=== PATIENT | male | born 1995 | race Caucasian/White ===

== ENCOUNTER 2016-05-04 02:12 | Observation (INO) | payer BC ==
[2016-05-04 02:32] VITALS: BP 158/93
--- NOTE | 2016-05-04 03:04 | ER Document Report ---
ED Psych Disorder / Suicide - General Chief Complaint: Numbness Stated Complaint: NUMBNESS ON RIGHT SIDE Time seen by provider: 02:59 Mode of Arrival: Stretcher Information source: Law Enforcement TRAVEL OUTSIDE OF THE [place] IN LAST 30 DAYS: No - HPI Patient complains to provider of: Suicidal ideation Onset: Just prior to arrival Onset was: Sudden Suicide Risk Factors: Male Associated symptoms: Flat affect, Other - Somnolent Notes: Patient is a 20-year-old male who was brought to the emergency room by law enforcement for suicidal ideation, IVC paper work that was completed by patient' s mother, states " Respondent and is currently on a balcony at the hotel. Respondent is suicidal with verbal thoughts of killing himself. Respondent is currently prescribed oxycodone, Xanax, Flomax and amphetamines. Respondent is argumentative with family. Respondent is currently depressed and family feels he will hurt himself.", Patient is somnolent upon arrival and does not provide any additional information - Related Data Allergies/Adverse Reactions: hydrocodone Allergy (Verified 05/04/16 02:33) Past Medical History - General Information source: Law Enforcement - Social History Smoking Status: Never Smoker Chew tobacco use (# tins/day): No Frequency of alcohol use: Occasional Drug Abuse: None Family History: Reviewed & Not Pertinent Patient has suicidal ideation: No Patient has homicidal ideation: No Renal/ Medical History: Denies: Hx Peritoneal Dialysis Review of Systems - Review of Systems Constitutional: No symptoms reported EENT: No symptoms reported Cardiovascular: No symptoms reported Respiratory: No symptoms reported Gastrointestinal: No symptoms reported Genitourinary: No symptoms reported Male Genitourinary: No symptoms reported Musculoskeletal: No symptoms reported Skin: No symptoms reported Hematologic/Lymphatic: No symptoms reported Neurological/Psychological: See HPI -: Yes All other systems reviewed and negative Physical Exam - Vital signs Vitals: Temp Pulse Resp BP Pulse Ox 97.9 F 97 16 158/93 H 96 05/04/16 02:23 05/04/16 02:23 05/04/16 02:23 05/04/16 02:23 05/04/16 02:23 Interpretation: Tachycardic - General General appearance: Other - Somnolent In distress: None - HEENT Head: Normocephalic, Atraumatic Eyes: Normal Conjunctiva: Normal Extraocular movements intact: Yes Eyelashes: Normal Pupils: PERRL Mucous membranes: Dry - Respiratory Respiratory status: No respiratory distress Chest status: Nontender Breath sounds: Normal Chest palpation: Normal - Cardiovascular Rhythm: Regular, Tachycardia - Abdominal Inspection: Normal, Healed incision Bowel sounds: Normal Tenderness: Tender - Mild tenderness in epigastric and left upper quadrant - Back Back: Normal - Extremities General upper extremity: Normal inspection General lower extremity: Normal inspection - Neurological Jose C Coma Scale Eye Opening: To Voice [place] Coma Scale Verbal: Confused [place] Coma Scale Motor: Obeys Commands Jose C Coma Scale Total: 13 - Psychological Associated symptoms: Flat affect, Other - Somnolent - Skin Skin Temperature: Warm Skin Moisture: Dry Skin Color: Normal Course - Re-evaluation Re-evalutation: 05/04/16 03:02 Patient brought to the emergency room on IVC paper work does completed by his mother stating that he was on a balcony, verbalizing suicidal thoughts, that he is argumentative with family and currently depressed and is at risk of harming himself, patient is somnolent on arrival, slightly tachycardic but otherwise stable, concerning likely ingested some medications, we will continue to monitor patient in the emergency room, he will be held on IVC paper work, for further evaluation by the mental health team in the morning - Vital Signs Vital signs: Temp Pulse Resp BP Pulse Ox 97.9 F 97 16 158/93 H 96 05/04/16 02:23 05/04/16 02:23 05/04/16 02:23 05/04/16 02:23 05/04/16 02:23 - EKG Interpretation by Me EKG shows normal: Sinus rhythm Rate: Tachycardia Discharge - Discharge Clinical Impression: Suicidal ideation Condition: Stable Disposition: PSYCH HOSP/UNIT
--- NOTE | 2016-05-04 03:10 | ER Document Report ---
ED General - General TRAVEL OUTSIDE OF THE [place] IN LAST 30 DAYS: No <ABENA BARLOW - Last Filed: 05/04/16 07:04> <MARISSA TURCIOS - Last Filed: 05/04/16 12:36> - General Chief Complaint: Numbness Stated Complaint: NUMBNESS ON RIGHT SIDE Notes: Patient is a 20-year-old male who presents after he had a sudden onset headache during masturbating. This occurred around 1:30 AM. Patient says that he then developed numbness and weakness and rest of his body in had difficulty walking on his own. He said very slurred speech. This never happened before. His only history is depression and asthma. Patient's father is at bedside and says his speech was very slurred. Father said that he had to help him walk as he cannot walk on his own. Patient says his symptoms have almost completely resolved. Has no weakness on the right side. He says that she still has just a very slight numbness to the right side. His headache is improving. His vision is improved. His speech is back to normal. (ABENA BARLOW) - Related Data Allergies/Adverse Reactions: hydrocodone Allergy (Verified 05/04/16 02:33) Past Medical History - Social History Smoking Status: Never Smoker Chew tobacco use (# tins/day): No Frequency of alcohol use: Occasional Drug Abuse: None Family History: Reviewed & Not Pertinent Patient has suicidal ideation: No Patient has homicidal ideation: No Renal/ Medical History: Denies: Hx Peritoneal Dialysis <ABENA BARLOW - Last Filed: 05/04/16 07:04> Review of Systems <ABENA BARLOW - Last Filed: 05/04/16 07:04> <MARISSA TURCIOS - Last Filed: 05/04/16 12:36> - Review of Systems Notes: My Normal Review Basic REVIEW OF SYSTEMS: CONSTITUTIONAL : Denies fever, chills, or sweats. Denies recent illness. EENT: Denies eye, ear, throat, or mouth pain or symptoms. Denies nasal or sinus congestion. CARDIOVASCULAR: Denies chest pain. RESPIRATORY: Denies cough, cold, or chest congestion. Denies shortness of breath, difficulty breathing, or wheezing. GASTROINTESTINAL: Denies abdominal pain. Denies nausea, vomiting, or diarrhea. Denies constipation. Last BM: MUSCULOSKELETAL: Denies neck or back pain or joint pain or swelling. SKIN: Denies rash or skin lesions. NEUROLOGICAL: Denies altered mental status or loss of consciousness. Had a headache. Weakness and numbness to the right side which is improving. Had slurred speech which is improved. ALL OTHER SYSTEMS REVIEWED AND NEGATIVE. (ABENA BARLOW) Physical Exam <ABENA BARLOW - Last Filed: 05/04/16 07:04> <MARISSA TURCIOS - Last Filed: 05/04/16 12:36> - Vital signs Vitals: Temp Pulse Resp BP Pulse Ox 97.9 F 97 16 158/93 H 96 05/04/16 02:23 05/04/16 02:23 05/04/16 02:23 05/04/16 02:23 05/04/16 02:23 (ABENA BARLOW) (MARISSA TURCIOS) - Notes Notes: General Appearance: Well nourished, alert, cooperative, no acute distress, no obvious discomfort. Well-appearing. Vitals: reviewed, See vital signs table. Head: no swelling or tenderness to the head Eyes: PERRL, EOMI, Conjuctiva clear Mouth: No decreasd moisture Throat: No tonsillar inflammation, No airway obstruction, No lymphadenopathy Neck: Supple, no neck tenderness, No thyromegaly Lungs: No wheezing, No rales, No rhonci, No accessory muscle use, good air exchange bilaterally. Heart: Normal rate, Regular rythm, No murmur, no rub Abdomen: Normal BS, soft, No rigidity, No abdominal tenderness, No guarding, no rebound, no abdominal masses, no organomegaly Extremities: strength 5/5 in all extremities, good pulses in all extremities, no swelling or tenderness in the extremities, no edema. Skin: warm, dry, appropriate color, no rash Neuro: speech clear, oriented x 3, normal affect, responds appropriately to questions. Cranial nerves II through XII are intact. Patient can feel me touch his right upper and lower extremity but says it's slightly diminished in comparison to the sensation on his left side. Speech is clear. He's able to walk without difficulty. Normal gait. Normal strength in all 4 extremities. ( ABENA BARLOW) Course - Laboratory Result Diagrams: 05/04/16 03:42 05/04/16 03:42 <ABENA BARLOW - Last Filed: 05/04/16 07:04> - Laboratory Result Diagrams: 05/04/16 03:42 05/04/16 03:42 <MARISSA TURCIOS - Last Filed: 05/04/16 12:36> - Re-evaluation Re-evalutation: 05/04/16 04:[address] scan was negative. The initial it's appropriate to do a lumbar puncture to rule out subarachnoid hemorrhage being the patient's history. I did discuss this with the patient and his father. He is agreeable to this procedure. 05/04/16 05:43 I did attempt to obtain the lumbar puncture. I was unsuccessful. I tried 2 times. No fluid return on either attempt. Patient will be sent to the CT scanner for CT angio of his head. 05/04/16 07:04 Patient's neurologic symptoms are resolved currently. CT was not successful at ruling out a type of aneurysm based on only partial opacification of the intracranial vessels during the scan. I did speak with the marketing support assistant , Trevon. He agrees to come in and do the lumbar puncture under fluoroscopy. ( ABENA BARLOW) 05/04/16 12:35 Neurologic symptoms have all but resolved now. Still concern about possible etiology for symptoms. Lumbar puncture shows no signs of endocrine bleeding. Patient case was discussed with hospitalist will observe overnight. (MARISSA TURCIOS) - Vital Signs Vital signs: Temp Pulse Resp BP Pulse Ox 97.9 F 97 16 158/93 H 96 05/04/16 02:23 05/04/16 02:23 05/04/16 02:23 05/04/16 02:23 05/04/16 02:23 (ABENA BARLOW) (MARISSA TURCIOS) - Laboratory Laboratory results interpreted by me: 05/04/16 03:42 WBC 14.1 H MCV 78 L MCH 25.9 L Seg Neutrophils % 79.0 H Absolute Neutrophils 11.1 H (MARISSA TURICOS) Discharge <ABENA BARLOW - Last Filed: 05/04/16 07:04> - Discharge Admitting Provider: Hospitalist - [facility] Admitted: Telemetry <MARISSA TURCIOS - Last Filed: 05/04/16 12:36> - Discharge Clinical Impression: transient unilateral weakness Headache Qualifiers: Headache type: unspecified Headache chronicity pattern: unspecified pattern Intractability: not intractable Qualified Code(s): R51 - Headache Condition: Good Disposition: ADMITTED OBSERVATION
[2016-05-04 03:52] LABS: ABSOLUTE BASOPHILS # (AUTO) 0.1 10^3/uL (0.0-0.2); ABSOLUTE EOSINOPHILS # (AUTO) 0.1 10^3/uL (0.0-0.6); ABSOLUTE MONOCYTES (AUTO) 0.9 10^3/uL (0.1-1.4); ABSOLUTE NEUT (AUTO) 11.1 10^3/uL (1.7-8.2); BASOPHILS % (AUTO) 0.4 % (0-2); EOSINOPHILS % (AUTO) 0.4 % (0-6); HEMATOCRIT 42.6 % (37.9-51.0); HEMOGLOBIN 14.1 g/dL (13.5-17.0); HGB HCT DIFFERENCE -0.3; MEAN CORPUSCULAR HEMOGLOBIN 25.9 pg (27.0-33.4); MEAN CORPUSCULAR HGB CONC 33.1 g/dL (32.0-36.0); MEAN CORPUSCULAR VOLUME 78 fl (80-97); MONOCYTES % (AUTO) 6.2 % (3-13); RED BLOOD COUNT 5.44 10^6/uL (4.35-5.55); RED CELL DISTRIBUTION WIDTH 13.2 % (11.5-14.0); WHITE BLOOD COUNT 14.1 10^3/uL (4.0-10.5)
[2016-05-04] MEDS ORDERED: LIDOCAINE 2% INJ (20 MG/ML) 20 ML MDV INJ ONE (03:54)
[2016-05-04 03:58] LABS: PARTIAL THROMBOPLASTIN TIME 29.2 SEC (23.5-35.8)
[2016-05-04 03:59] LABS: ANION GAP 9 (5-19); BLOOD UREA NITROGEN 18 mg/dL (7-20); CALCIUM 9.7 mg/dL (8.4-10.2); CARBON DIOXIDE 28 mmol/L (22-30); CHLORIDE 105 mmol/L (98-107); CREATININE RESULT 0.96 mg/dL (0.52-1.25); GLUCOSE 110 mg/dL (75-110); POTASSIUM 4.3 mmol/L (3.6-5.0); SODIUM 141.8 mmol/L (137-145)
[2016-05-04] MEDS ORDERED: NORMAL SALINE 1000 ML 500 ML IV ONE (04:58)
[2016-05-04] MEDS ORDERED: ONDANSETRON HCL INJ/PF 4 MG/2 ML SDV IV ONE (09:27)
[2016-05-04] MEDS ORDERED: PROCHLORPERAZINE EDISYLATE INJ 10 MG/2 ML VIAL IV ONE (09:27)
[2016-05-04 11:12] LABS: APPEARANCE ALL TUBES CLEAR
[2016-05-04 11:13] LABS: RBC SIDE 1 22; RBC SIDE 2 18
[2016-05-04 11:14] LABS: RBC DILUENT USED NONE USED; RBC DILUTION FACTOR 1; TOTAL RBC SQUARES COUNTED 225
[2016-05-04 11:15] LABS: WHITE BLOOD CELL,CSF 1 /uL (0-5)
[2016-05-04 11:16] LABS: APPEARANCE ALL TUBES CLEAR
[2016-05-04 11:17] LABS: RBC SIDE 1 0; RBC SIDE 2 2
[2016-05-04 11:18] LABS: RBC DILUENT USED NONE USED; RBC DILUTION FACTOR 1; TOTAL RBC SQUARES COUNTED 225
[2016-05-04 11:19] LABS: WHITE BLOOD CELL,CSF 1 /uL (0-5)
--- NOTE | 2016-05-04 15:48 | PDOC CONSULTATION ---
Consultation Consult Date: 05/04/16 Attending physician:: DAVE WARD Consult reason:: Headache with right-sided numbness and weakness History of Present Illness Admission Date/PCP: 05/04/16 12:50 Patient complains of: Headache with right-sided numbness and weakness History of Present Illness: CARLOS DE LA ROSA is a 20 year old male with past medical history of depression and morbid obesity, who presented to the emergency room at approximately 1:30 AM with complaints of right-sided headache associated with right-sided extremity weakness and numbness. Patient states he was masturbating when he climaxed he has a severe right-sided headache and then beginning having right-sided numbness and weakness. He was having difficulty walking, therefore he awakened his father brought him to the emergency room. Patient states at the present time , his symptoms have completely resolved. He has had no history of migraine headaches or TIAs in the past. He denies any history of hypertension or dyslipidemia. Denies any history family history of coronary artery disease or CVAs. He does not smoke. Past Medical History Cardiac Medical History: Reports: None Pulmonary Medical History: Reports: None EENT Medical History: Reports: None Neurological Medical History: Reports: None Endocrine Medical History: Reports: None Renal/ Medical History: Reports: None Malignancy Medical History: Reports: None GI Medical History: Reports: None Musculoskeltal Medical History: Reports: None Skin Medical History: Reports: None Psychiatric Medical History: Reports: Depression Traumatic Medical History: Reports: None Hematology: Reports: None Infectious Medical History: Reports: None Past Surgical History Past Surgical History: Reports: None Social History Information Source: Patient Lives with: Family Smoking Status: Never Smoker Frequency of Alcohol Use: Rare Hx Recreational Drug Use: No Hx Prescription Drug Abuse: No - Advance Directive Resuscitation Status: Full Code Surrogate healthcare decision maker:: Parents Family History Family History: Reviewed & Not Pertinent Parental Family History Reviewed: Yes Children Family History Reviewed: NA Sibling(s) Family History Reviewed.: Yes Medication/Allergy Home Medications: Vilazodone Hydrochloride [Viibryd] 20 mg PO DAILY 05/04/16 Allergies/Adverse Reactions: hydrocodone Allergy (Verified 05/04/16 02:33) Review of Systems Constitutional: ABSENT: chills, fever(s), headache(s), weight gain, weight loss Eyes: ABSENT: visual disturbances Ears: ABSENT: hearing changes Nose, Mouth, and Throat: PRESENT: headache(s) Cardiovascular: ABSENT: chest pain, dyspnea on exertion, edema, orthropnea, palpitations Respiratory: ABSENT: cough, hemoptysis Gastrointestinal: ABSENT: abdominal pain, constipation, diarrhea, hematemesis, hematochezia, nausea, vomiting Genitourinary: ABSENT: dysuria, hematuria Musculoskeletal: ABSENT: joint swelling Integumentary: ABSENT: rash, wounds Neurological: PRESENT: numbness, weakness - right side which has resolved Psychiatric: PRESENT: depression Endocrine: ABSENT: cold intolerance, heat intolerance, polydipsia, polyuria Hematologic/Lymphatic: ABSENT: easy bleeding, easy bruising Physical Exam Vital Signs: Temp Pulse Resp BP Pulse Ox 97.9 F 97 16 158/93 H 96 05/04/16 02:23 05/04/16 02:23 05/04/16 02:23 05/04/16 02:23 05/04/16 02:23 General appearance: PRESENT: no acute distress, morbidly obese, well-developed, well-nourished Head exam: PRESENT: atraumatic, normocephalic Eye exam: PRESENT: conjunctiva pink, EOMI, PERRLA. ABSENT: scleral icterus Ear exam: PRESENT: normal external ear exam Mouth exam: PRESENT: moist, tongue midline Neck exam: ABSENT: carotid bruit, JVD, lymphadenopathy, thyromegaly Respiratory exam: PRESENT: clear to auscultation alejandro. ABSENT: rales, rhonchi, wheezes Cardiovascular exam: PRESENT: bradycardia Pulses: PRESENT: normal dorsalis pedis pul Vascular exam: PRESENT: normal capillary refill GI/Abdominal exam: PRESENT: normal bowel sounds, soft. ABSENT: distended, guarding, mass, organolmegaly, rebound, tenderness Rectal exam: PRESENT: deferred Extremities exam: PRESENT: full ROM. ABSENT: calf tenderness, clubbing, pedal edema Neurological exam: PRESENT: alert, awake, oriented to person, oriented to place , oriented to time, oriented to situation, CN II-XII grossly intact. ABSENT: motor sensory deficit Psychiatric exam: PRESENT: appropriate affect, normal mood. ABSENT: homicidal ideation, suicidal ideation Skin exam: PRESENT: abrasion Results Impressions: Head CT 05/04/16 02:56 IMPRESSION: NORMAL BRAIN CT WITHOUT CONTRAST. Head CTA 05/04/16 04:58 IMPRESSION: Very limited study as described. No gross abnormalities. Assessment & Plan - Diagnosis (1) Headache Qualifiers: Headache type: unspecified Headache chronicity pattern: unspecified pattern Intractability: not intractable Qualified Code(s): R51 - Headache Is this a current diagnosis for this admission?: YesPlan: Resolved. Most likely complex migraine. Never had prior. CT and CTA negative. LP negative. Discussed case with Dr Mcfadden, She feels he is safe to be discharged. He will follow up with Dr Alpesh Grimaldo on Friday (2) Weakness Is this a current diagnosis for this admission?: YesPlan: Right sided weakness has resolved (3) Depression Qualifiers: Depression Type: major depressive disorder Is this a current diagnosis for this admission?: YesPlan: Continue current medication - Time Time Spent: 50 to 70 Minutes Critical Time spent with patient: 25-34 minutes Medications reviewed and adjusted accordingly: Yes Anticipated discharge: Home - Plan Summary Plan Summary: Discharge home. Follow up with neurology on Friday. Return if symptoms return here in the meantime
== END 2016-05-04 13:00 | disposition home or self-care (01) ==
LOC: ER 02:12 → EH 12:42 → UNDOADMOB 12:42 → EH 12:50
PROVIDERS: ADMIT Emergency Medicine; ATTEND Emergency Medicine
PROC: 009U3ZX Drainage of Spinal Canal, Percutaneous Approach, Diagnostic (ICD-10-PCS; principal; 2016-05-04)
PROC: 3E033GC Introduction of Other Therapeutic Substance into Peripheral Vein, Percutaneous Approach (ICD-10-PCS; 2016-05-04)
PROC: 3E033GC Introduction of Other Therapeutic Substance into Peripheral Vein, Percutaneous Approach (ICD-10-PCS; 2016-05-04)
DX: R51 Headache (principal); R53.1 Weakness; F32.9 Major depressive disorder, single episode, unspecified; E66.01 Morbid (severe) obesity due to excess calories; J45.909 Unspecified asthma, uncomplicated
CPT/HCPCS: 99284; 96374; 96375; 36415; 85025; 85610; 85730; 89050; 80048; 70450; 70496; 62270; J0780; J2405

== ENCOUNTER → 2016-05-14 | Outpatient (CLI) | payer BC | LOC: RAD 13:06 | PROVIDERS: ATTEND Pediatrics | DX: G45.9 Transient cerebral ischemic attack, unspecified (principal); R51 Headache | CPT/HCPCS: 70553; 70544; 70549; A9576 ==

== ENCOUNTER → 2016-05-23 | Outpatient (CLI) | payer BC | LOC: RAD 13:52 | PROVIDERS: ATTEND Pediatrics | DX: G46.4 Cerebellar stroke syndrome (principal) | CPT/HCPCS: 70496; 70498 ==